=== PATIENT | male | born 1985 | race African-American/Black ===

== ENCOUNTER 2020-03-10 16:10 | Emergency (ER) | payer MEDICAID, OTHER ==
[~2020-03-10] VITALS: Ht 182.9 cm; Wt 103.0 kg
[2020-03-10 19:09] VITALS: BP 138/87
== END 2020-03-10 19:17 | disposition home or self-care (01) ==
LOC: ER 16:10
DX: S16.1XXA Strain of muscle, fascia and tendon at neck level, initial encounter (principal); S00.81XA Abrasion of other part of head, initial encounter; V49.9XXA Car occupant (driver) (passenger) injured in unspecified traffic accident, initial encounter; Y93.89 Activity, other specified; Y92.89 Other specified places as the place of occurrence of the external cause; Y99.8 Other external cause status
CPT/HCPCS: 70450; 72125

== ENCOUNTER 2020-06-12 14:52 | Emergency (ER) | payer MEDICAID ==
[~2020-06-12] VITALS: Ht 182.9 cm; Wt 99.8 kg
[2020-06-12 14:58] VITALS: BP 123/62
== END 2020-06-12 16:24 | disposition home or self-care (01) ==
LOC: ER 14:53
DX: L60.0 Ingrowing nail (principal)

== ENCOUNTER 2020-08-28 03:20 | Emergency (ER) | payer MEDICAID ==
[~2020-08-28] VITALS: Ht 185.4 cm; Wt 99.8 kg
[2020-08-28 03:21] VITALS: BP 119/89
[2020-08-28] MEDS ORDERED: KETOROLAC TROMETH 60MG/2ML VIAL IM ONE (07:30)
[2020-08-28] MEDS ORDERED: cefTRIAXone SOD 1,000 MG VL IM ONE (07:30)
== END 2020-08-28 07:59 | disposition home or self-care (01) ==
LOC: ER 03:20
DX: N39.0 Urinary tract infection, site not specified (principal)
CPT/HCPCS: 81002; 96372; 99284; J0696; J1885

== ENCOUNTER 2020-10-02 17:13 | Emergency (ER) | payer MEDICAID ==
[~2020-10-02] VITALS: Ht 185.4 cm; Wt 99.8 kg
[2020-10-02 17:15] VITALS: BP 117/78
== END 2020-10-02 19:04 | disposition home or self-care (01) ==
LOC: ER 17:13
DX: N35.919 Unspecified urethral stricture, male, unspecified site (principal); Z76.0 Encounter for issue of repeat prescription

== ENCOUNTER 2022-09-01 15:55 | Emergency (ER) | payer MEDICAID ==
[~2022-09-01] VITALS: Ht 185.4 cm; Wt 106.8 kg
[2022-09-01 16:57] VITALS: BP 143/83
[2022-09-01] MEDS ORDERED: SODIUM CHLORIDE 0.9% 1,000 ML IVB ONE (17:00)
[2022-09-01] MEDS ORDERED: PROCHLORPERAZINE EDISYLATE 5 MG/ML 2ML VIAL IV ONE (17:00)
[2022-09-01] MEDS ORDERED: PANTOPRAZOLE 40 MG/10 ML VIAL INJ IV ONE (17:00)
[2022-09-01 17:28] LABS: Basophils # (auto) 0 10 ^3/uL (0-0.2); Basophils % (auto) 0.4 % (0.0-2.0); Eosinophils # (auto) 0 10 ^3/uL (0-0.8); Eosinophils % (auto) 0.6 % (0.0-7.0); Lymphocytes % (auto) 14.9 % (10.0-50.0); Mean Corpuscular Hemoglobin 31.4 pg (28.0-32.0); Mean Corpuscular Hgb Conc. 34.1 g/dL (32.0-36.0); Mean Corpuscular Volume 92.3 fL (80.0-100.0); Monocytes # (auto) 0.2 10 ^3/uL (0-1.3); Monocytes % (auto) 3.5 % (0.0-12.0); Neutrophils # (auto) 5.2 10 ^3/uL (1.6-8.6); Neutrophils % (auto) 80.6 % (37.0-80.0); Nucleated Red Blood Cells % 0.1 %; Red Blood Cells 5.09 10^6/uL (4.5-5.90); Red Cell Distribution Width 13.3 % (11.8-14.3); White Blood Cell 6.4 10^3/uL (4.4-10.8)
[2022-09-01 17:43] LABS: Alanine Aminotransferase 33 U/L (16-61); Albumin 3.9 g/dL (3.4-5.0); Anion Gap 5 (5-15); Aspartate Aminotransferase 21 U/L (15-37); Blood Urea Nitrogen 13 mg/dL (7-18); Calcium 9.4 mg/dL (8.5-10.1); Carbon Dioxide 25 mmol/L (21-32); Chloride 106 mmol/L (98-107); GFR African American 70 mL/min; GFR Non-African American 58 mL/min; Glucose 118 mg/dL (74-106); Lipase 74 U/L (73-393); Potassium 4.9 mmol/L (3.5-5.1); Sodium 136 mmol/L (136-145)
[2022-09-01 17:47] LABS: Alkaline Phosphatase 72 U/L (45-117); Bilirubin, Total 1.1 mg/dL (0.2-1.0)
[2022-09-01] MEDS ORDERED: ONDA-144 PO (18:16)
[2022-09-01] MEDS ORDERED: PANT40TA2 PO (18:16)
== END 2022-09-01 21:55 | disposition left against medical advice (07) ==
LOC: ER 15:57
DX: E86.0 Dehydration (principal); F12.10 Cannabis abuse, uncomplicated; Z88.6 Allergy status to analgesic agent
CPT/HCPCS: 36415; 74176; 80053; 83605; 83690; 85025